=== PATIENT | male | born 1975 | race Caucasian/White ===

== ENCOUNTER 2025-06-01 22:35 | Emergency (ER) | payer OTHER ==
[~2025-06-01] VITALS: Ht 172.7 cm; Wt 78.0 kg
[2025-06-01 22:41] VITALS: TEMP 98.7; O2SAT 99
[2025-06-02 04:50] VITALS: BP 101/64; PULSE 75; RESP 18; O2SAT 100
== END 2025-06-02 04:58 | disposition home or self-care (01) ==
LOC: ER 22:35
DX: F41.9 Anxiety disorder, unspecified (principal); E11.9 Type 2 diabetes mellitus without complications; I10 Essential (primary) hypertension; Z79.899 Other long term (current) drug therapy
CPT/HCPCS: 93005; 99283